=== PATIENT | female | born 1990 | race African-American/Black ===

== ENCOUNTER 2021-10-03 15:13 | Outpatient (CLI) | payer BC, OTHER, SELFPAY ==
--- NOTE | ~2021-10-03 | US_ITS ---
EXAMINATION: US OB <=14 wk fetus w TV DATE: 10/03/2021 16:13 INDICATION: Vaginal bleeding. . TECHNIQUE: Real-time transabdominal and transvaginal pelvic ultrasound was performed. COMPARISON: None. FINDINGS: TRANSABDOMINAL ULTRASOUND: The uterus measures 8.4 x 4.9 x 5.5 cm. TRANSVAGINAL ULTRASOUND: There is an intrauterine gestational sac. A yolk sac is identified. The fet al crown rump length measures 6 mm, which correlates with an estimated gestational age of 6 weeks and 3 day(s) (+/-) 4 day(s). heart motion is identified measuring 129 beats per minute (bpm) by M- mode Doppler. There is a small subchorionic hematoma. There are 1.9 cm and 2.5 cm uterine fibroids. T he right ovary measures 2.2 x 1.6 x 1.7 cm. The left ovary is not well-visualized. There is no free f luid in the pelvis. IMPRESSION: 1. Single living intrauterine gestation with estimated date of delivery of 05/26/2022. 2. Small subchorionic hematoma. 3. Uterine fibroids. Reviewed, dictated and finalized at location A. UCT TESTER IMPRESSION: 1. Single living intrauterine gestation with estimated date of delivery of . 2. Small subchorionic hematoma. 3. Uterine fibroids.
== END 2021-10-03 15:14 | disposition home or self-care (01) ==
PROVIDERS: PCP Family Medicine; Visit Provider Obstetrics & Gynecology Gynecology
DX: O26.851 Spotting complicating pregnancy, first trimester (principal); Z3A.00 Weeks of gestation of pregnancy not specified; D25.9 Leiomyoma of uterus, unspecified
CPT/HCPCS: 36415; 76801; 76817; 86900; 86901

== ENCOUNTER 2021-10-17 08:42 | Outpatient (CLI) | payer BC, OTHER, SELFPAY ==
--- NOTE | ~2021-10-17 | US_ITS ---
EXAMINATION: US OB <= 14 weeks fetus DATE: 10/17/2021 09:30 INDICATION: Subchorionic hematoma during first trimester . TECHNIQUE: Real-time pelvic ultrasound utilizing a transabdominal probe was performed. The interpret ing radiologist was not present for the study. COMPARISON: 10/03/2021 FINDINGS: The uterus measures 10.1 x 8.3 x 7.2 cm. There is an intrauterine gestational sac. A yolk sac and fe jared pole are identified. The crown rump length measures 1.9 cm, which correlates with an estimated ge stational age of 8 weeks and 3 days which is exactly concordant with estimated gestational age based upon the earlier ultrasound. heart motion is identified measuring 163 beats per minute (bpm) by M-mode Doppler. There is a 1.9 x 1.4 x 0.3 cm anechoic likely subchorionic hematoma along the preflight mechanic ior margin of the gestational sac. 3.4 x 3.1 x 2.6 cm hypoechoic pedunculated fibroid arising from th e uterine fundus. The right ovary measures 3.1 x 1.2 x 1.4 cm. The left ovary measures 3.3 x 2.3 x 1.9 cm. 1.8 x 1.5 x 1.2 cm hypoechoic likely corpus luteum cyst in the right left ovary. There is no free fluid in the pe lvis. IMPRESSION: 1. Single living fetus with heart rate of 163 bpm. 2. [place]-rump length of 1.9 cm which is exactly concordant with previously estimated gestational age by ultrasound of 8 weeks 3 day(s) with ultrasound estimated date of delivery (PRADIP) of 05/26/2022. 3. 1.9 x 1.4 x 0.3 cm subchorionic hematoma. 4. 3.4 cm pedunculated fibroid arising from the uterine fundus. Reviewed, dictated and finalized at location A. IMPRESSION: 1. Single living fetus with heart rate of 163 bpm. 2. [place]-rump length of 1.9 cm which is exactly concordant with previously justo mated gestational age by ultrasound of 8 weeks 3 day(s) with ultrasound estimat ed date of delivery (PRADIP) of 05/26/2022. 3. 1.9 x 1.4 x 0.3 cm subchorionic hematoma. 4. 3.4 cm pedunculated fibroid arising from the uterine fundus.
== END 2021-10-17 08:43 | disposition home or self-care (01) ==
PROVIDERS: PCP Family Medicine; Visit Provider Obstetrics & Gynecology Gynecology
DX: O36.8910 Maternal care for other specified fetal problems, first trimester, not applicable or unspecified (principal); Z3A.00 Weeks of gestation of pregnancy not specified
CPT/HCPCS: 76801

== ENCOUNTER 2021-11-07 07:42 | Outpatient (CLI) | payer BC, OTHER, SELFPAY ==
--- NOTE | ~2021-11-07 | US_ITS ---
EXAMINATION: US OB <= 14 weeks fetus DATE: 11/07/2021 08:59 INDICATION: Subchorionic hematoma during first trimester TECHNIQUE: Real-time pelvic ultrasound utilizing transabdominal probe was performed. The yuliana shaw radiologist was not present for the study. COMPARISON: None. FINDINGS: The uterus measures 13.9 x 9.1 x 8.4 cm. There is an intrauterine gestational sac. A yolk sac and fe jared pole are identified. The crown rump length measures 4.7 cm, which is concordant within 1 day of p reviously estimated gestational age of 11 weeks and 3 days. heart motion is identified measurin g 156 beats per minute (bpm) by M-mode Doppler. Persistent 2.1 x 1.4 x 0.4 cm anechoic subchorionic h ematoma. There are a few hypoechoic uterine fibroids, the largest a subserosal fibroid at the right s mary of the fundus measuring up to 3.8 cm in maximal diameter. The right ovary measures 2.7 x 1.5 x 1.3 cm. The left ovary measures 3.7 x 1.8 x 2.2 cm. Vascular britt w identified in both ovaries on color Doppler. There is no free fluid in the pelvis. IMPRESSION: 1. Single living fetus with heart of 156 bpm. 2. [place]-rump length of 4.7 cm which is concordant within 1 day of previously estimated gestational a ge of 11 weeks 3 day(s) with ultrasound estimated date of delivery (PRADIP) of 05/26/2022. 3. Persistent 2.1 x 1.4 x 0.4 anechoic subchorionic hematoma. 4. Fibroid uterus. Reviewed, dictated and finalized at location B. IMPRESSION: 1. Single living fetus with heart of 156 bpm. 2. [place]-rump length of 4.7 cm which is concordant within 1 day of previously e stimated gestational age of 11 weeks 3 day(s) with ultrasound estimated date of delivery (PRADIP) of 05/26/2022. 3. Persistent 2.1 x 1.4 x 0.4 anechoic subchorionic hematoma. 4. Fibroid uterus.
== END 2021-11-07 07:43 | disposition home or self-care (01) ==
PROVIDERS: PCP Family Medicine; Visit Provider Obstetrics & Gynecology Gynecology
DX: O20.8 Other hemorrhage in early pregnancy (principal); Z3A.11 11 weeks gestation of pregnancy; D25.9 Leiomyoma of uterus, unspecified
CPT/HCPCS: 76801

== ENCOUNTER 2021-11-25 15:14 | Outpatient (CLI) | payer BC, OTHER, SELFPAY ==
--- NOTE | ~2021-11-25 | US_ITS ---
EXAMINATION: US OB <= 14 weeks fetus DATE: 11/25/2021 16:27 INDICATION: Subchorionic hematoma follow-up. Second trimester. TECHNIQUE: Real-time transabdominal pelvic ultrasound was performed. COMPARISON: Ultrasound 11/07/2021, 10/03/2021 FINDINGS: The uterus measures 14.9 cm. There is an intrauterine gestational sac. There is a single fetus in br eech presentation. The crown rump length measures 8.9 cm, which correlates with an estimated g estational age of 14 weeks and 5 day(s). heart motion is identified measuring 142 beats per min grind[place] (bpm) by M-mode Doppler. There is a 1.0 cm intramural fibroid. There is a 2.5 cm intramural fibro id. There is a 3.2 cm subserosal fibroid. The ovaries are not visualized. There is no free fluid in t he pelvis. IMPRESSION: 1. Single living intrauterine gestation with estimated date of delivery of 05/26/2022 based on the u ltrasound from 10/03/2021. 2. No subchorionic hematoma. 3. Uterine fibroids. Reviewed, dictated and finalized at location A. IMPRESSION: 1. Single living intrauterine gestation with estimated date of delivery of based on the ultrasound from 10/03/2021. 2. No subchorionic hematoma. 3. Uterine fibroids.
== END 2021-11-25 15:15 | disposition home or self-care (01) ==
PROVIDERS: PCP Family Medicine; Visit Provider Nurse Practitioner
DX: O46.92 Antepartum hemorrhage, unspecified, second trimester (principal); O34.10 Maternal care for benign tumor of corpus uteri, unspecified trimester; Z3A.00 Weeks of gestation of pregnancy not specified
CPT/HCPCS: 76801

== ENCOUNTER 2021-12-26 13:54 | Outpatient (CLI) | payer BC, OTHER, SELFPAY ==
--- NOTE | ~2021-12-26 | US_ITS ---
US breast RT complete DATE: 12/26/2021 16:25 INDICATION: Palpable left breast mass. According to the technologist the patient's physician requeste d complete right breast ultrasound and targeted left 11:00 breast ultrasound examination. TECHNIQUE: Real-time imaging of complete right breast COMPARISON: None FINDINGS: No suspicious mass or shadowing, cyst or other significant abnormality of the right breast is detected. IMPRESSION: BI-RADS Category 1: Negative Reviewed, dictated and finalized at Location A. Reviewed, dictated and finalized at location A.
--- NOTE | ~2021-12-26 | US_ITS ---
US breast LT limited DATE: 12/26/2021 16:24 INDICATION: Palpable area at 11:00 TECHNIQUE: Real-time imaging targeted to 11:00 position of left breast per referring physician instru ctions according to the technologist COMPARISON: None FINDINGS: No suspicious mass, shadowing or other significant abnormality is identified in the left br east at 11:00 7 cm from the nipple. IMPRESSION: BI-RADS Category 1: Negative Reviewed, dictated and finalized at Location A. Reviewed, dictated and finalized at location A.
--- NOTE | ~2021-12-26 | US_ITS ---
EXAMINATION: US OB /maternal detail DATE: 12/26/2021 16:37 INDICATION: survey TECHNIQUE: Multiple obstetric sonographic images performed. FINDINGS: Comparison to multiple prior studies sequentially, with oldest reviewed study dated 2021. There is a single living fetus in variable presentation. The placenta is anterior without placenta p revia. Amniotic fluid volume is normal. There are uterine fibroids measuring up to 4.3 and 1.9 cm gre atest dimension respectively. cardiac activity and movement is noted with a heart rate of 146 beats per minute. The following anatomy was identified as normal: 4 chamber heart 3 vessel cord cord insertion kidneys urinary bladder stomach spine diaphragm ventricles cisterna magna cerebellum The following biometric data were obtained: BPD: 46mm corresponds to gestational age 19 weeks 6 days. Head circumference: 165 mm corresponds to gestational age 19 weeks 1 days. Abdominal circumference: 143 mm corresponds to gestational age 19 weeks 4 days. Femur length: 31 mm corresponds to gestational age 19 weeks 5 days. Head circumference to abdominal circumference ratio: 1.16 (normal range for expected gestational age is 1.08-1.26). Estimated weight: 303 grams +/- 45 grams using Hadlock method, greater than 97%. IMPRESSION: 1: Single living intrauterine with an estimated gestational age of 18weeks 3days by initial ultrasound measurements, with an EDC of 05/26/2022 in variable presentation. 2. Normal survey. 3: Uterine fibroids. Reviewed, dictated and finalized at location A. IMPRESSION: 1: Single living intrauterine with an estimated gestational age of 18 weeks 3days by initial ultrasound measurements, with an EDC of 05/26/2022 in va riable presentation. 2. Normal survey. 3: Uterine fibroids.
== END 2021-12-26 13:55 | disposition home or self-care (01) ==
PROVIDERS: PCP Family Medicine; Visit Provider Obstetrics & Gynecology Gynecology
DX: Z34.92 Encounter for supervision of normal pregnancy, unspecified, second trimester (principal); Z3A.19 19 weeks gestation of pregnancy; D25.9 Leiomyoma of uterus, unspecified; R92.8 Other abnormal and inconclusive findings on diagnostic imaging of breast
CPT/HCPCS: 76641; 76642; 76805

== ENCOUNTER 2022-02-06 07:55 | Outpatient (CLI) | payer BC, OTHER, SELFPAY ==
--- NOTE | ~2022-02-06 | US_ITS ---
EXAMINATION: US OB follow up DATE: 02/06/2022 10:07 INDICATION: viability assessment and fibroid follow-up during second trimester TECHNIQUE: Real-time ultrasound of the pelvis was performed. The interpreting radiologist was not pre sent for the study. COMPARISON: 12/26/2021 FINDINGS: There is a single living fetus in breech presentation. The placenta is anterior. card iac activity and movement are noted. heart rate is 157 beats per minute (bpm). The amniot ic fluid index is 21.6 cm which is normal (normal range: 9.8 cm to 21.9 cm). There is a 4.2 x 4.0 cm intramural fibroid of the uterus, grossly unchanged. The following biometric data were obtained: Biparietal diameter (BPD): 6.5 cm; head circumference (HC): 23.4 cm; abdominal circumference (AC): 21 .6 cm; femur length (FL): 4.5 cm. These measurements are concordant. Estimated weight is 838 g +/- 125 g, which correlates with the 91st percentile when 05/26/2022 is used as estimated date of delivery. As single measurements, these parameters are each equal to the following estimated gestational ages w ith ranges of +/- 2 standard deviations: BPD: 26 weeks 2 days +/- 2 weeks 1 days. HC: 25 weeks 4 days +/- 2 weeks 0 days. AC: 26 weeks 1 days +/- 2 weeks 1 days. FL: 25 weeks 0 days +/- 2 weeks 1 days. estimated gestational age based solely on measurements from this exam is 25 weeks 5 days +/- 1 weeks 6 days. IMPRESSION: 1. Single living fetus in breech presentation. 2. Stable uterine fibroid. 3. Normal amniotic fluid index. 4. Estimated weight is 838 g +/- 125 g, which correlates with the 91st percentile when 05/26/20 is used as estimated date of delivery. Reviewed, dictated and finalized at location B. IMPRESSION: 1. Single living fetus in breech presentation. 2. Stable uterine fibroid. 3. Normal amniotic fluid index. 4. Estimated weight is 838 g +/- 125 g, which correlates with the rcentile when 05/26/2022 is used as estimated date of delivery.
== END 2022-02-06 07:56 | disposition home or self-care (01) ==
PROVIDERS: PCP Family Medicine; Visit Provider Obstetrics & Gynecology Gynecology
DX: O36.62X0 Maternal care for excessive fetal growth, second trimester, not applicable or unspecified (principal); Z3A.25 25 weeks gestation of pregnancy
CPT/HCPCS: 76816

== ENCOUNTER 2022-03-12 16:20 | Outpatient (CLI) | payer BC, OTHER, SELFPAY ==
--- NOTE | ~2022-03-12 | US_ITS ---
EXAMINATION: US OB follow up DATE: 03/12/2022 17:21 INDICATION: Large for gestational dates TECHNIQUE: Real-time transabdominal obstetric ultrasound. FINDINGS: Comparison to multiple prior studies sequentially, with oldest reviewed study dated 2019. There is a single living fetus in vertex presentation. The placenta is anterior without placenta pre via. There is uterine fibroid measuring 5.1 cm. cardiac activity and movement is noted with a heart rate of 150 beats per minute. T he amniotic fluid volume is normal. [place] measures 20.6 cm. The following biometric data were obtained: BPD: 79mm corresponds to gestational age 31 weeks 4 days. Head circumference: 281mm corresponds to gestational age 30 weeks 6 days. Abdominal circumference: 272mm corresponds to gestational age 31 weeks 2 days. Femur length: 61mm corresponds to gestational age 31 weeks 6 days. Estimated weight: 1763grams +/- 264grams, 96.7% by Hadlock method.] IMPRESSION: 1. Single living intrauterine in vertex presentation with an estimated gestational age of 29 weeks 2 days by inititial ultrasound. Accelerated interval growth. Estimated weight is 96.7% by Hadlock method. 2. Normal placenta. Reviewed, dictated and finalized at location A. IMPRESSION: 1. Single living intrauterine in vertex presentation with an estimat ed gestational age of 29 weeks 2 days by inititial ultrasound. Accelerated inte rval growth. Estimated weight is 96.7% by Hadlock method. 2. Normal placenta.
== END 2022-03-12 16:21 | disposition home or self-care (01) ==
PROVIDERS: PCP Family Medicine; Visit Provider Obstetrics & Gynecology Gynecology
DX: O36.63X0 Maternal care for excessive fetal growth, third trimester, not applicable or unspecified (principal); Z3A.29 29 weeks gestation of pregnancy
CPT/HCPCS: 76816

== ENCOUNTER 2022-04-14 20:42 | Observation (INO) | payer BC, OTHER, SELFPAY ==
[2022-04-14] VITALS (25 sets, daily range): BP systolic 99–128; BP diastolic 49–76; PULSE 83–99; O2SAT 98–100; BMI 36.6
--- NOTE | 2022-04-14 21:38 | PC.NURSE ---
2131- Called Dr. Avendaño- informed of pt admission for contractions every 7 minutes apart per pt. pt states that she is having vaginal pressure. cervical exam 160%/-2 posterior. orders received for po hydration, terbutaline and continue to monitor pt. will continue to monitor and call if questions/concerns.
[2022-04-14] MEDS: TERBUTALINE SULFATE 1 MG/ML VIAL 0.25 MG SUB-Q (21:46)
--- NOTE | 2022-04-14 23:11 | PC.NURSE ---
Dr. Avendaño called in for update. update given. order received to have pt take procardia 20mg every 4 instead of 6 hours. may take baby off the monitor and continue to monitor contractions. will give another dose of terbutaline if needed and continue to monitor.
[2022-04-15 00:01] VITALS: BP 105/71; PULSE 89
[2022-04-15 00:16] VITALS: BP 99/50; PULSE 89
--- NOTE | 2022-04-15 00:30 | PC.NURSE ---
called Dr. Avendaño- pt not feeling contractions. no contractions noted on monitor. orders to d/c home with discharge instructions.
[2022-04-15 00:31] VITALS: BP 104/52; PULSE 112
--- NOTE | 2022-04-15 00:34 | OBADM ---
This patient, Buffy Stratton, admitted to the OB room Labor/Delivery/Recovery 106 for observation. Patient/family oriented to hospital policies and general routines including ID bracelet, bed and alarms, visiting hours, pain management, procedures, bathroom and other care routines, personal items, smoking policy, room service/diet, and visiting hours. Patient/Family are encouraged to report perceived risks to care and to ask questions if they do not understand what they are told or what they should do.
--- NOTE | 2022-04-20 09:05 | PM.OBTRLD ---
OB - Triage/Final Diagnosis Visit Information Reason for evaluation: threatened labor Comments/Additional reasons for admission: I have assessed the risk for this patient, Buffy Stratton, and determined that she would benefit from observation care.
== END 2022-04-15 01:03 | disposition home or self-care (01) ==
PROVIDERS: Admitting Provider Obstetrics & Gynecology Gynecology; PCP Family Medicine; Visit Provider Obstetrics & Gynecology Gynecology
DX: O47.03 False labor before 37 completed weeks of gestation, third trimester (principal); Z3A.33 33 weeks gestation of pregnancy
CPT/HCPCS: 96372; G0378; G0379; J3105

== ENCOUNTER 2022-05-21 04:57 | Inpatient (IN) | payer BC, OTHER, SELFPAY ==
[2022-05-21] VITALS (234 sets, daily range): BP systolic 79–164; BP diastolic 39–119; PULSE 71–185; TEMP 36.4–36.9; O2SAT 88–100; BMI 37.8
--- NOTE | 2022-05-21 05:21 | LDADM ---
This patient, Buffy Stratton, was admitted to Labor/Delivery/Recovery 103 on 05/21/22 at 04:57. Plans for labor, pain management and were discussed with patient. Patient/family oriented to hospital policies and general routines including ID bracelet, bed and alarms, visiting hours, pain management, procedures, bathroom and other care routines, personal items, smoking policy, room service/diet and guest tray routines, security routines, and visiting hours. Patient/Family are encouraged to report perceived risks to care and to ask questions if they do not understand what they are told or what they should do. See OBIX for further documentation.
[2022-05-21 05:22] LABS: Basophils Percent Auto 0.2 % (0.2-1.2); Eosinophils Absolute Auto 0.1 K/mm3 (0-0.3); Eosinophils Percent Auto 0.4 % (0-4.4); Hematocrit 35.2 % (37.0-47.0); Immature Granulocyte Absolute 0.08 K/mm3 (0.00-0.031); Immature Granulocyte Percent A 0.7 % (0-0.5); Lymphocytes Absolute Auto 1.82 K/mm3 (0.9-3.2); Lymphocytes Percent Auto 15.8 % (18.3-44.2); Mean Corpuscular HGB Conc 34.1 g/dl (32-36); Mean Corpuscular Hemoglobin 31.6 pg (26-34); Mean Corpuscular Volume 92.6 fl (80-100); Mean Platelet Volume 10.9 fl (7.4-10.4); Monocytes Absolute Auto 1.1 K/mm3 (0.1-0.6); Monocytes Percent Auto 9.7 % (2.6-8.5); Neutrophils Absolute Auto 8.4 K/mm3 (1.3-6.7); Neutrophils Percent Auto 73.2 % (45.5-73.1); Platelet Count Result 280 k/mm3 (150-375); Red Cell Distribution Width 13.4 % (11.5-14.5); White Blood Count 11.5 K/mm3 (4.5-10.0)
[2022-05-21] MEDS: LACTATED RINGERS 1,000 ML 125 ML IV CONT ×4 (05:50→20:51)
[2022-05-21] MEDS: OXYTOCIN 30 UNITS/NS 500 ML 30 UNITS/500 ML BAG 6 UNITS IV CONT (05:50)
[2022-05-21 06:35] LABS: Rapid Plasma Reagin Non-Reactive (NonReactive)
--- NOTE | 2022-05-21 07:18 | WPDOBADMIT ---
Obstetrics - Admit Note Admission Note: record reviewed. No pertinent additions to the history and/or any subsequent changes in the physical findings that are not consistent with the expected course of the were found. Additions to the history and/or subsequent changes in the physical findings follow. Here for MIL at 39 wks. Cervix 5-6/70/-2 anterior. AROM with clear fluid. FHTs cat. I. Continue pitocin.
--- NOTE | 2022-05-21 09:38 | WPDANESEPP ---
Anes - Eval Pre Procedure Procedure: labor epidural Date/Time: 05/21/22 09:38 Preop Diagnosis: labor pain Pre Op Diagnosis: IOL Patient Data Age: 31 Gender: F Height: 1.65 m Weight: 103 kg Last Vital Signs Temp 36.6 C 05/21/22 07:15 Pulse 88 05/21/22 09:30 BP 120/71 05/21/22 09:30 O2 Del Method Room Air 05/21/22 05:20 Allergies Allergy/AdvReac Type Severity Reaction Status Date / Time No Known Allergies Allergy Verified 04/28/22 12:37 Home Medications Medication Instructions Recorded Confirmed Type albuterol sulfate 90 mcg/actuation 2 puff inhalation PRN 04/15/22 05/21/22 History aerosol inhaler nifedipine 10 mg capsule 20 mg Q4H 04/15/22 05/21/22 History ergocalciferol (vitamin D2) 1,250 1,250 mcg PO WEEKLY 04/28/22 05/21/22 History mcg (50,000 unit) capsule (Vitamin D2) ferrous sulfate 250 mg (50 mg 250 mg PO DAILY 04/28/22 04/28/22 History iron) tablet,extended release prenat.vits,calvin,[id number] 1 tablet PO DAILY 04/28/22 04/28/22 History Laboratory Tests 05/21/22 05/21/22 05/21/22 05:16 05:16 05:16 WBC 11.5 K/mm3 H K/mm3 (4.5-10.0) RBC 3.80 M/mm3 L M/mm3 (4.2-5.4) Hgb 12.0 g/dL g/dL (12.0-15.0) Hct 35.2 % L % (37.0-47.0) MCV 92.6 fl fl (80-100) MCH 31.6 pg pg (26-34) MCHC 34.1 g/dl g/dl (32-36) RDW 13.4 % % (11.5-14.5) Plt Count 280 k/mm3 k/mm3 (150-375) MPV 10.9 fl H fl (7.4-10.4) Immature Gran % (Auto) 0.7 % H % (0-0.5) Neut % (Auto) 73.2 % H % (45.5-73.1) Lymph % (Auto) 15.8 % L % (18.3-44.2) [place] % (Auto) 9.7 % H % (2.6-8.5) Eos % (Auto) 0.4 % % (0-4.4) Baso % (Auto) 0.2 % % (0.2-1.2) Lymph # (Auto) 1.82 K/mm3 K/mm3 (0.9-3.2) [place] # (Auto) 1.1 K/mm3 H K/mm3 (0.1-0.6) Eos # (Auto) 0.1 K/mm3 K/mm3 (0-0.3) Baso # (Auto) 0.0 K/mm3 K/mm3 (0.0-0.1) Abs Immat Gran (auto) 0.08 K/mm3 H K/mm3 (0.00-0.031) Absolute Neuts (auto) 8.4 K/mm3 H K/mm3 (1.3-6.7) Absolute Nucleated RBC 0.0 K/mm3 K/mm3 (0.0-0.012) Nucleated RBC % 0.0 % % (0.0-0.2) RPR Non-reactive (NonReactive) Blood Type O Positive Antibody Screen Negative Patient hx anesthesia problems: none Family hx anesthesia problems: none Results Review: All pre-operative results and documents have been reviewed as part of the pre-operative evaluation. [facility] Family History Family History Mother High cholesterol Arthritis Cataract Glaucoma Hypertension Father Arthritis Grandparent Cerebrovascular accident Heart attack Grandparent Cerebrovascular accident Heart attack Grandparent Breast cancer in female Social History Social History Smoking status: Never smoker Substance use: never Spiritual care concerns: No Exam Day of Procedure 05/21/22 09:38
[2022-05-21] MEDS: diphenhydrAMINE HCl INJ 50 MG/ML VIAL 25 MG IV PUSH (21:41)
[2022-05-22] VITALS (61 sets, daily range): BP systolic 85–133; BP diastolic 35–84; PULSE 70–296; RESP 15–22; TEMP 36.5–37.3; O2SAT 97–100
[2022-05-22] MEDS: ceFAZolin 2 GM/D5W 50 ML 2 GM/50 ML BAG IVPB (02:33)
--- NOTE | 2022-05-22 02:34 | PM.IMHP ---
H&P: HPI History of Present Illness Date/Time: 05/22/22 02:34 Chief Complaint: failure to progress Narrative: the patient is a 31-year-old 2 para 0 aborta 1 admitted at 39 weeks for medical induction of labor. ultrasounds have been greater than the 90th percentile for weight. Labor has progressed slowly since induction. Patient has remained 9 to 9 and half for the past 6 to 7 hours. heart tones remained category 1. Labor has been adequate throughout the day. Discussed with the patient the option of versus continuing and due to the estimated large size I recommended proceeding with and the patient agrees. labs O positive, rubella immune, RPR negative, HIV negative, hepatitis-B surface antigen negative, group B strep. Due to the large estimated size patient did Accu-Cheks for a short time that were normal. Her initial hemoglobin A1c and 28 week 1hour glucose challenge test were both no. Patient did have an episode of labor at 31 weeks she did receive steroids at that time. She was on Procardia until 36 weeks. Review of Systems Review of Systems: Comfortable with epidural PMFSH Past Medical History Medical History (Updated 05/22/22 @ 02:40 by Celina Avendaño MD) Asthma Breast lump patient has seen a surgeon during the and the plan is to repeat the exam Fibroids Spontaneous January of 2021 Family History Family History Mother High cholesterol Arthritis Cataract Glaucoma Hypertension Father Arthritis Grandparent Cerebrovascular accident Heart attack Grandparent Cerebrovascular accident Heart attack Grandparent Breast cancer in female Social History Social History Smoking status: Never smoker Substance use: never Spiritual care concerns: No Meds Home Medications and Allergies Home Medications Medication Instructions Recorded Confirmed Type albuterol sulfate 90 mcg/actuation 2 puff inhalation PRN 04/15/22 05/21/22 History aerosol inhaler nifedipine 10 mg capsule 20 mg Q4H 04/15/22 05/21/22 History ergocalciferol (vitamin D2) 1,250 1,250 mcg PO WEEKLY 04/28/22 05/21/22 History mcg (50,000 unit) capsule (Vitamin D2) ferrous sulfate 250 mg (50 mg 250 mg PO DAILY 04/28/22 04/28/22 History iron) tablet,extended release prenat.vits,calvin,[id number] 1 tablet PO DAILY 04/28/22 04/28/22 History Allergies Allergy/AdvReac Type Severity Reaction Status Date / Time No Known Allergies Allergy Verified 04/28/22 12:37 Vital Signs Vital Signs - 24 hr 05/21/22 05:20 05/21/22 06:01 05/21/22 05:30 Temperature 97.5 F L Pulse Rate 93 Blood Pressure 118/76 Pulse Oximetry Oxygen Delivery Room Air 05/21/22 06:15 05/21/22 06:31 05/21/22 06:45 Temperature Pulse Rate 95 82 93 Blood Pressure 116/77 103/59 L 118/82 Pulse Oximetry Oxygen Delivery 05/21/22 07:01 05/21/22 07:15 05/21/22 07:30 Temperature 97.9 F Pulse Rate 93 86 95 Blood Pressure 116/65 119/75 123/77 Pulse Oximetry Oxygen Delivery 05/21/22 07:45 05/21/22 08:00 05/21/22 08:16 Temperature Pulse Rate 92 89 95 Blood Pressure 126/77 122/75 110/72 Pulse Oximetry Oxygen Delivery 05/21/22 08:30 05/21/22 08:45 05/21/22 09:00 Temperature Pulse Rate 96 89 108 H Blood Pressure 115/74 118/68 122/72 Pulse Oximetry Oxygen Delivery 05/21/22 09:16 05/21/22 09:30 05/21/22 09:41 Temperature Pulse Rate 88 88 Blood Pressure 112/61 120/71 Pulse Oximetry 100 Oxygen Delivery 05/21/22 09:43 05/21/22 09:45 05/21/22 09:46 Temperature Pulse Rate 84 89 87 Blood Pressure 126/66 125/72 122/78 Pulse Oximetry 99 Oxygen Delivery 05/21/22 09:48 05/21/22 09:51 05/21/22 09:53 Temperature Pulse Rate 95 89 84 Blo
--- NOTE | 2022-05-22 03:13 | P.OP_ITS ---
Procedure Note - Detailed Date of Procedure 05/22/22 Pre-op Diagnosis Intrauterine at 39 weeks failure to progress Post-op Diagnosis Same ( OP position) Procedure Performed primary low-transverse section Surgeon Celina Avendaño MD Anesthesia Epidural Findings female weighing 8lb 1oz with 9 and 9 Apgars in the OP position; normal- appearing tubes and ovaries; fibroid on the right serosal fundus measuring 5cm Description of Procedure the patient is taken to the operating room and placed under anesthesia in the dorsal supine position with a leftward tilt. The patient was prepped and draped in the usual sterile fashion. Once anesthesia was deemed adequate a Pfannenstiel skin incision was made with a scalpel and carried down to the underlying layer of fascia which was extended laterally using Gautam scissors. Ochsner were used to tent the fascia which was dissected off using sharp dissection. The rectus muscles were in the midline and the peritoneum grasped with a Peon and entered with Metzenbaum. The incision was extended with blunt traction. The bladder blade is placed and the vesicouterine peritoneum tented and entered with Metzenbaum scissors. The incision was extended laterally and the bladder flap created digitally. The bladder blade is replaced. The lower uterine segment was incised in the midline a transverse fashion. The incision was extended with blunt traction. The infant's head is noted to be in the occiput posterior position with the mouth at the incision. The infant's vertex was brought up into the incision and delivered while the physical therapist assistant applied fundal pressure. The was fully delivered. The cord was clamped and cut and the infant handed to the waiting nursery nurse. The cord blood for gases and labs were taken. The placenta is attempted to be removed by manual traction but there was cord avulsion therefore was removed manually. The uterus was cleared of all clots and debris and exteriorized. The uterine incision was closed using 0 Monocryl in a running locked fashion of the same suture used to imbricate. Good hemostasis is noted. The uterus is returned to the abdomen after clearing the gutters of clots and debris. The gutters were cleared of all clots and debris and the fascia closed using 0 Vicryl in a running fashion. Subcutaneous tissues were irrigated made hemostatic using Bovie cautery. Skin incision was closed using 4-0 Vicryl in a subcuticular fashion. Dermaflex was placed over the incision. Sponge, needle, and instrument counts are correct per the OR staff. Patient was taken to recovery in stable condition. Estimated Blood Loss 660 Drains Yes ( Echols catheter) Packing No Pathology None sent Complications No immediate complications Condition Stable Disposition Floor
[2022-05-22] MEDS: KETOROLAC 30 MG/ML VIAL (*BKC) IV PUSH ×3 (03:15→09:34)
--- NOTE | 2022-05-22 03:18 | PM.OBDSVD ---
DS: Admitting Diagnosis Discharge Date 05/24/22 Admitting Diagnosis intrauterine at 39 weeks for medical induction of labor DS: Discharge Diagnosis Discharge Diagnosis (1) Failure to progress in labor: Code(s): O62.2 - Other uterine inertia Status: Acute (2) delivery delivered: Code(s): O82 - Encounter for delivery without indication Status: Acute OB - DS: Summary OB Procedures : Ultrasound OB Procedures Intrapartum: low cervical, transverse OB Procedures: : None Peripartum Data Delivery Method: Section Procedures: Procedures Operation Date: 05/22/22 02:45 <No data on this case meets the specified criteria> complications: none Status at Discharge Functional status at discharge: independent ambulation Overall status at discharge: patient is progressing back to baseline Time Spent with Patient Time attestation: Total time spent providing and/or coordinating discharge services: DS: Data Data Completed and Pending Labs on day of discharge: Labs from last 24 hours 05/21/22 05/21/22 05/21/22 05:16 05:16 05:16 WBC 11.5 H RBC 3.80 L Hgb 12.0 Hct 35.2 L MCV 92.6 MCH 31.6 MCHC 34.1 RDW 13.4 Plt Count 280 MPV 10.9 H Immature Gran % (Auto) 0.7 H Neut % (Auto) 73.2 H Lymph % (Auto) 15.8 L [place] % (Auto) 9.7 H Eos % (Auto) 0.4 Baso % (Auto) 0.2 Lymph # (Auto) 1.82 [place] # (Auto) 1.1 H Eos # (Auto) 0.1 Baso # (Auto) 0.0 Abs Immat Gran (auto) 0.08 H Absolute Neuts (auto) 8.4 H Absolute Nucleated RBC 0.0 Nucleated RBC % 0.0 RPR Non-reactive Blood Type O Positive Antibody Screen Negative Discharge Plan Discharge Attending physician on discharge: Celina Avendaño Discharging Clinician: Ken Watters Anticipated Discharge Date/Time: 05/25/22 03:20 Patient Disposition: Home, Self-Care Activity: may shower, may drive after 2 weeks and pelvic rest Diet: regular Wound Care Instructions: incision open to air Discharge Instructions: Education: Mom and Baby Guide Given to: Mother Follow-Up: Call your delivering provider's office for an appointment to be seen in: 1 Week Mom and baby should come to the [facility] for the follow-up appointment. Appointment Date/Time: May 25, 2022 at 10:00 am What to expect at your follow-up visit: Blood Pressure Check Physical Assessment Call [phone] if you are unable to keep your appointment time. BREAST CARE: * Wear a snug supportive bra. * For engorgement discomfort: Breast Feeding: * Apply warm moist washcloths * Express milk as needed to relieve engorgement * Wear loose clothing Bottle Feeding: * May apply ice packs * For sore nipples: * Identify correct latch-on * Apply warm moist washcloths before and after nursing * Air dry nipples after nursing * May apply Lansinoh cream to nipples ABDOMINAL INCISION: (if applicable) * Allow incision to air dry * Do NOT use lotions for powders on your incision * When showering, allow soap and water to run over the incision, but do not wash incision EPISIOTOMY/PERINEAL CARE: * Until bleeding stops, use your lanie bottle after urinating * Change your pad frequently throughout the day * You may take sitz baths several times a day (fill your bathtub with warm water and soak for 20 minutes.) Do NOT bathe in the water * No tub baths until seen by your physician - You may shower ACTIVITY: * Rest as much as possible. * Do not exercise or lift anything heavier than your baby (such as laundry or other children.) * Avoid stairs or driving as much as possible. * Do not put anything into the vagina. No douching, tampons, or sexual activity until seen by physician. NOTIFY PHYSICIAN IF YOU HAVE ANY QUESTIONS OR IF ANY OF THE
[2022-05-22] MEDS: LACTATED RINGERS 1,000 ML 125 ML IV CONT (04:00)
[2022-05-22] MEDS: OXYTOCIN 30 UNITS/NS 500 ML 30 UNITS/500 ML BAG 125 UNITS IV CONT (04:43)
--- NOTE | 2022-05-22 05:44 | PC.NURSE ---
Patient transferred to post room #280 per stretcher from labor and delivery. Support person present. Oriented to unit, room, information board, rooming in, admission packet and security measures. Patient verbalizes understanding.
[2022-05-22] MEDS: MULTIVIT/MIN/PREN/FOL AC/IRON TABLET 1 TAB PO (09:32)
[2022-05-22] MEDS: DOCUSATE SODIUM 100 MG CAPSULE PO ×2 (09:33→18:59)
[2022-05-22] MEDS: DEXTROSE 5%/0.45% SOD CHL 1,000 ML 125 ML IV CONT (09:35)
--- NOTE | 2022-05-22 09:36 | PM.OBPNVD ---
OB - PN: Subj Subjective Date/time seen: 05/22/22 0735 Patient comments: pain well controlled baby status: doing well [place] feeding status: exclusively breast feeding OB - PN: Obj Data Labs CBC & Chem 7: 05/21/22 05:16 OB - PN A/P Plan day: 0 Plan: routine care Time Spent With Patient Time: Total time spent is greater than 50% in coordination of care (as documented) at patient's floor/unit and/or counseling patient: Review of Systems Review of Systems: All systems reviewed & are unremarkable except as noted in HPI and below Exam Const: Orientation/consciousness: patient oriented x3 Resp: Effort & Inspection: normal respiratory effort and able to speak in complete sentences Auscultation: clear to auscultation bilaterally Cardio: Rate: regular rate Peripheral pulses: Peripheral pulses 2+ throughout GI: Inspection: normal to inspection Auscultation: normal bowel sounds : General: Yes bladder normal to palpation Other: Fundus firm Skin: General skin exam: normal color Other: Incision approximated. Skin glue intact. Neuro: General: patient oriented x3 Cognition (Neuro): normal cognition Speech: normal speech Extrem: General: normal to inspection Psych: Appearance: grossly normal Mental Status: mental status grossly normal Speech and movement: Normal speech and movement present Affect: normal affect Attitude: cooperative Thought process: Normal thought process present
--- NOTE | 2022-05-22 11:30 | PC.NURSE ---
[phone] Introductions were made, then consulted with patient to assess needs related to . Mother led the conversation with she is latching her infant to the breast independently with no pain. She describes hurts at first, then subsides and feels like sucking . Information received well to know what to look for during to confirm effective latching, intake/output using the pie demonstration, swallowing with 's jaw using rocking motion with suck/swallow/pause ratios. Resources provided for inpatient and outpatient services using a resource guide and mom/baby guide. Mother voiced understanding of information and will call for assistance with the next feeding or if her will not wake to breastfeed. Reported to the primary RN.
[2022-05-22] MEDS: IBUPROFEN 600 MG TABLET PO (18:59)
[2022-05-22] MEDS: SIMETHICONE 80 MG TAB.CHEW PO (18:59)
[2022-05-22] MEDS: HYDROcodone/acetaminophen (*CRX) 10-325 MG TABLET 1 TAB PO (21:28)
[2022-05-23] VITALS: BP 124/69; PULSE 88; RESP 18; TEMP 36.9; O2SAT 98
[2022-05-23] MEDS: HYDROcodone/acetaminophen (*CRX) 10-325 MG TABLET 1 TAB PO ×3 (00:30→11:21)
[2022-05-23 04:00] VITALS: BP 113/72; PULSE 87; RESP 18; TEMP 36.7; O2SAT 98
[2022-05-23] MEDS: IBUPROFEN 600 MG TABLET PO ×3 (04:10→19:41)
[2022-05-23] MEDS: SIMETHICONE 80 MG TAB.CHEW PO ×4 (04:10→23:04)
[2022-05-23 04:56] LABS: Basophils Percent Auto 0.2 % (0.2-1.2); Eosinophils Percent Auto 0.2 % (0-4.4); Hematocrit 26.5 % (37.0-47.0); Immature Granulocyte Absolute 0.11 K/mm3 (0.00-0.031); Immature Granulocyte Percent A 0.7 % (0-0.5); Lymphocytes Absolute Auto 2.11 K/mm3 (0.9-3.2); Lymphocytes Percent Auto 12.6 % (18.3-44.2); Mean Corpuscular Volume 91.4 fl (80-100); Mean Platelet Volume 11.1 fl (7.4-10.4); Monocytes Absolute Auto 1.6 K/mm3 (0.1-0.6); Monocytes Percent Auto 9.3 % (2.6-8.5); Neutrophils Absolute Auto 12.9 K/mm3 (1.3-6.7); Platelet Count Result 239 k/mm3 (150-375); Red Cell Distribution Width 13.7 % (11.5-14.5); White Blood Count 16.7 K/mm3 (4.5-10.0)
--- NOTE | 2022-05-23 07:18 | PM.OBPNVD ---
OB - PN: Subj Subjective Date/time seen: 05/23/22 07:18 Patient comments: no complaints, pain well controlled, tolerating diet and flatus present OB - PN: Obj Data Labs CBC & Chem 7: 05/23/22 04:18 Labs: Laboratory Results - last 24 hr 05/23/22 04:18 WBC 16.7 H RBC 2.90 L Hgb 9.0 L D Hct 26.5 L MCV 91.4 MCH 31.0 MCHC 34.0 RDW 13.7 Plt Count 239 MPV 11.1 H Immature Gran % (Auto) 0.7 H Neut % (Auto) 77.0 H Lymph % (Auto) 12.6 L [place] % (Auto) 9.3 H Eos % (Auto) 0.2 Baso % (Auto) 0.2 Lymph # (Auto) 2.11 [place] # (Auto) 1.6 H Eos # (Auto) 0.0 Baso # (Auto) 0.0 Abs Immat Gran (auto) 0.11 H Absolute Neuts (auto) 12.9 H Absolute Nucleated RBC 0.0 Nucleated RBC % 0.0 OB - PN A/P Plan day: 1 Plan: routine care Comments: patient doing well H/H 9.0 afebrile, VSS incision C/D/I kelley removed, voiding spontaneously continue routine post op care Time Spent With Patient Time: Total time spent is greater than 50% in coordination of care (as documented) at patient's floor/unit and/or counseling patient: Time with patient: less than 15 minutes Review of Systems Constitutional: Constitutional: Reports no additional constitutional complaints Cardiovascular: Cardiovascular: Reports no additional cardiovascular complaints Respiratory: Respiratory: Reports no additional respiratory complaints Gastrointestinal: Gastrointestinal: Reports no additional gastrointestinal complaints Genitourinary: Genitourinary: Reports no additional female genitourinary complaints Exam Const: General: comfortable and no acute distress Resp: Effort & Inspection: normal respiratory effort Auscultation: clear to auscultation bilaterally Cardio: Rate: regular rate GI: GI Palp: Yes Soft to palpation, Yes Tenderness to palpation present (GI) (around incision ) and No Guarding due to palpation present (GI) Auscultation: normal bowel sounds Other: incision C/D/I, covered with Dermabond Psych: Appearance: grossly normal Mental Status: mental status grossly normal Affect: normal affect
[2022-05-23 07:50] VITALS: BP 131/80; PULSE 81; RESP 18; TEMP 36.4; O2SAT 97
[2022-05-23] MEDS: MULTIVIT/MIN/PREN/FOL AC/IRON TABLET 1 TAB PO (07:53)
[2022-05-23] MEDS: DOCUSATE SODIUM 100 MG CAPSULE PO ×2 (07:53→16:31)
[2022-05-23] MEDS: POLYSACCHARIDE IRON COMPLEX 150 MG CAPSULE PO ×2 (07:53→16:31)
[2022-05-23] MEDS: HYDROcodone/acetaminophen (*CRX) 5-325 MG TABLET 1 TAB PO ×4 (08:00→23:04)
--- NOTE | 2022-05-23 10:21 | WPDANLDPN2 ---
Anes-Prog Note L&D Date/Time: 05/23/22 10:21 Neuro status: Neuro function grossly intact. Cardiovascular status: normal Respiratory status: normal Airway patency: baseline Mental status: baseline Post-Op hydration status: normal Vital Signs: Last Vital Signs Temp 36.4 C 05/23/22 07:50 Pulse 81 05/23/22 07:50 Resp 18 05/23/22 07:50 BP 131/80 05/23/22 07:50 Pulse Ox 97 05/23/22 07:50 O2 Del Method Room Air 05/23/22 07:50 Pain score (VAS): 2 I/O: Intake & Output 05/22/22 05/23/22 05/23/22 23:59 07:59 15:59 Output Total 1999 -1999 Post-procedural complaints: none Patient feedback: Patient satisfied with anesthetic care.
[2022-05-23 11:43] VITALS: BP 146/80; PULSE 91; RESP 18; TEMP 36.9; O2SAT 99
[2022-05-23 16:50] VITALS: BP 141/77; PULSE 77; RESP 16; TEMP 36.5; O2SAT 98
[2022-05-23 19:41] VITALS: BP 125/73; PULSE 80; RESP 18; TEMP 36.6; O2SAT 100
[2022-05-24] MEDS: SIMETHICONE 80 MG TAB.CHEW PO ×2 (03:57→08:35)
[2022-05-24] MEDS: IBUPROFEN 600 MG TABLET PO (03:57)
--- NOTE | 2022-05-24 07:25 | PM.OBDSVD ---
DS: Admitting Diagnosis Discharge Date 05/24/22 Admitting Diagnosis intrauterine at term OB - DS: Summary OB Procedures : None OB Procedures Intrapartum: OB Procedures: : None Peripartum Data Infant Delivery Method: Section Procedures: Procedures Operation Date: 05/22/22 02:45 Actual Procedure Side Surgeon p Section Not Applicable Celina Avendaño MD complications: none Status at Discharge Functional status at discharge: independent ambulation Overall status at discharge: patient is progressing back to baseline Time Spent with Patient Time attestation: Total time spent providing and/or coordinating discharge services: Time spent: Less than 30 minutes Exam Const: General: comfortable and no acute distress Resp: Effort & Inspection: normal respiratory effort Auscultation: clear to auscultation bilaterally Cardio: Rate: regular rate GI: Inspection: non-distended GI Palp: Yes Soft to palpation, No Firmness to palpation present (GI), Yes Tenderness to palpation present (GI) (mild tenderness over incision ) and No Guarding due to palpation present (GI) Auscultation: normal bowel sounds Psych: Appearance: grossly normal Mental Status: mental status grossly normal Discharge Plan Discharge Attending physician on discharge: Celina Avendaño Discharging Clinician: Ken Watters Anticipated Discharge Date/Time: 05/25/22 03:20 Patient Disposition: Home, Self-Care Activity: may shower, may drive after 2 weeks and pelvic rest Diet: regular Wound Care Instructions: incision open to air Patient Instructions: Antibiotic Form Stand Alone Forms: General Discharge Information Follow-up/Referrals: Celina Avendaño MD [Physician] - 1 Week ( and 6 weeks) Discharge Medications: New hydrocodone-acetaminophen 5-325 mg tablet 1 tablet PO Q6H PRN (Reason: pain) Qty: 30 0RF acetaminophen [Mapap (acetaminophen)] 325 mg Tablet 650 mg PO Q6H PRN (Reason: Mild Pain (1-3)) Qty: 30 0RF ibuprofen 600 mg Tablet 600 mg PO Q6H PRN (Reason: Cramping) Qty: 30 0RF Continued nifedipine 10 mg capsule 20 mg Q4H albuterol sulfate 90 mcg/actuation HFA aerosol inhaler 2 puff INHALATION PRN ergocalciferol (vitamin D2) [Vitamin D2] 1,250 mcg (50,000 unit) Capsule 1,250 mcg PO WEEKLY #2 Tablet 1 tablet PO DAILY ferrous sulfate 250 mg (50 mg iron) Tablet Extended Release 250 mg PO DAILY Date of admission: 05/21/22 04:57 Primary Care Provider: Honey,Tien Wick Admitting Provider: Celina Avendaño Attending physician on admission: Celina Avendaño Condition: Stable
[2022-05-24 08:30] VITALS: BP 147/92; PULSE 78; RESP 18; TEMP 36.7; O2SAT 99
[2022-05-24] MEDS: HYDROcodone/acetaminophen (*CRX) 5-325 MG TABLET 1 TAB PO (08:35)
[2022-05-24] MEDS: MULTIVIT/MIN/PREN/FOL AC/IRON TABLET 1 TAB PO (08:35)
[2022-05-24] MEDS: DOCUSATE SODIUM 100 MG CAPSULE PO (08:35)
[2022-05-24] MEDS: POLYSACCHARIDE IRON COMPLEX 150 MG CAPSULE PO (08:35)
[2022-05-24] MEDS: LANOLIN (LANSINOH) 7.5 GM CREAM 1 APPLIC TOPICAL (08:37)
--- NOTE | 2022-05-24 10:45 | PC.NURSE ---
Patient viewed the discharge video Mother & Baby Care, The First Two Weeks . Patient was given the opportunity and encouraged to ask questions. Patient verbalized understanding of information shared and has been given the mother/baby guide for home reference.
[2022-05-25 09:56] VITALS: BP 127/81; PULSE 80; RESP 20; TEMP 37.1; O2SAT 100
== END 2022-05-24 12:00 | disposition home or self-care (01) | DRG 788 ==
LOC: ANHLDR 05-22 03:38 → ANHOB2 05-22 10:59 → ANHLDR 05-26 10:50 → ANHOB2 05-26 10:50
PROVIDERS: Admitting Provider Obstetrics & Gynecology Gynecology; PCP Family Medicine; Visit Provider Student in an Organized Health Care Education/Training Program
PROC: 10D00Z1 Extraction of Products of Conception, Low, Open Approach (ICD-10-PCS; CPT 59514; principal; 2022-05-22 02:45)
DX: O36.63X0 Maternal care for excessive fetal growth, third trimester, not applicable or unspecified (principal); Z37.0 Single live birth; Z3A.39 39 weeks gestation of pregnancy; O36.8330 Maternal care for abnormalities of the fetal heart rate or rhythm, third trimester, not applicable or unspecified; O62.2 Other uterine inertia
CPT/HCPCS: 36415; 85025; 86592; 86850; 86900; 86901; A9270; J0456; J0690; J1200; J1885; J2274; J2590; J2795; J7120

== ENCOUNTER 2024-08-18 11:39 | Inpatient (IN) | payer OTHER, SELFPAY ==
[2024-08-18] VITALS (54 sets, daily range): BP systolic 108–157; BP diastolic 39–123; PULSE 41–127; RESP 18; TEMP 36.3–37.2; O2SAT 79–100; BMI 38.3
--- NOTE | 2024-08-18 13:10 | WPDOBADMIT ---
Obstetrics - Admit Note Admission Note: record reviewed. No pertinent additions to the history and/or any subsequent changes in the physical findings that are not consistent with the expected course of the were found. Additions to the history and/or subsequent changes in the physical findings follow. Patient is here in active labor. Cervix 3 cm on arrival and now 5/80/-3 AROM with clear fluid. Patient with a prior LTCS for FTP. Patient has planned TOLAC if went into labor on her own. Will proceed with TOLAC. Plans epidural. FHTs cat. I.
[2024-08-18] MEDS: LACTATED RINGERS 1,000 ML 125 ML IV CONT (13:20)
[2024-08-18] MEDS: fentaNYL CITRATE INJ (*CRX) 100 MCG/2 ML VIAL IV PUSH (13:20)
--- NOTE | 2024-08-18 13:32 | LDADM ---
This patient, Buffy Stratton, was admitted to Labor/Delivery/Recovery 102 on 08/18/24 at 11:39. Plans for labor, pain management and were discussed with patient. Patient/family oriented to hospital policies and general routines including ID bracelet, bed and alarms, visiting hours, pain management, procedures, bathroom and other care routines, personal items, smoking policy, room service/diet and guest tray routines, security routines, and visiting hours. Patient/Family are encouraged to report perceived risks to care and to ask questions if they do not understand what they are told or what they should do. See OBIX for further documentation.
[2024-08-18 13:33] LABS: Basophils Percent Auto 0.3 % (0.2-1.2); Eosinophils Percent Auto 0.2 % (0-4.4); Hemoglobin 12.2 g/dL (12.0-15.0); Immature Granulocyte Absolute 0.06 K/mm3 (0.00-0.031); Immature Granulocyte Percent A 0.5 % (0-0.5); Lymphocytes Absolute Auto 1.62 K/mm3 (0.9-3.2); Mean Corpuscular HGB Conc 33.9 g/dl (32-36); Mean Corpuscular Hemoglobin 29.8 pg (26-34); Mean Platelet Volume 10.8 fl (7.4-10.4); Monocytes Percent Auto 8.2 % (2.6-8.5); Neutrophils Absolute Auto 8.9 K/mm3 (1.3-6.7); Neutrophils Percent Auto 76.8 % (45.5-73.1); Platelet Count Result 303 k/mm3 (150-375); Red Blood Count 4.09 M/mm3 (4.2-5.4); Red Cell Distribution Width 14.4 % (11.5-14.5); White Blood Count 11.6 K/mm3 (4.5-10.0)
--- NOTE | 2024-08-18 14:15 | WPDANESEPP ---
Anes - Eval Pre Procedure Procedure: Labor epidural Date/Time: 08/18/24 14:15 Surgeon: Jarocho Preop Diagnosis: Abdominal pain with contractions Pre Op Diagnosis: Labor Patient Data Age: 33 Gender: F Height: 1.65 m Weight: 104.5 kg Last Vital Signs Pulse 88 08/18/24 14:14 BP 152/90 H 08/18/24 14:14 Pulse Ox 100 08/18/24 14:12 O2 Del Method Room Air 08/18/24 13:31 Allergies Allergy/AdvReac Type Severity Reaction Status Date / Time No Known Allergies Allergy Verified 04/28/22 12:37 Home Medications ?Medication ?Instructions ?Recorded ?Confirmed ?Type albuterol sulfate 90 mcg/actuation 2 puff inhalation PRN 04/15/22 05/21/22 History aerosol inhaler nifedipine 10 mg capsule 20 mg Q4H 04/15/22 05/21/22 History ergocalciferol (vitamin D2) 1,250 1,250 mcg PO WEEKLY 04/28/22 05/21/22 History mcg (50,000 unit) capsule (Vitamin D2) ferrous sulfate 250 mg (50 mg 250 mg PO DAILY 04/28/22 04/28/22 History iron) tablet,extended release prenat.vits,calvin,xwc-vyho-vgfis 1 tablet PO DAILY 04/28/22 04/28/22 History acetaminophen 325 mg tablet (Mapap 650 mg (2 x 325 mg) PO Q6H PRN 05/24/22 Rx (acetaminophen)) Mild Pain (1-3) #30 tabs hydrocodone 5 mg-acetaminophen 325 1 tablet PO Q6H PRN pain #30 tabs 05/24/22 Rx mg tablet ibuprofen 600 mg tablet 600 mg PO Q6H PRN Cramping #30 tabs 05/24/22 Rx Laboratory Tests 08/18/24 08/18/24 13:27 13:28 WBC 11.6 H K/mm3 (4.5-10.0) RBC 4.09 L M/mm3 (4.2-5.4) Hgb 12.2 D g/dL (12.0-15.0) Hct 36.0 L % (37.0-47.0) MCV 88.0 fl (80-100) MCH 29.8 pg (26-34) MCHC 33.9 g/dl (32-36) RDW 14.4 % (11.5-14.5) Plt Count 303 k/mm3 (150-375) MPV 10.8 H fl (7.4-10.4) Immature Gran % (Auto) 0.5 % (0-0.5) Neut % (Auto) 76.8 H % (45.5-73.1) Lymph % (Auto) 14.0 L % (18.3-44.2) Stark % (Auto) 8.2 % (2.6-8.5) Eos % (Auto) 0.2 % (0-4.4) Baso % (Auto) 0.3 % (0.2-1.2) Lymph # (Auto) 1.62 K/mm3 (0.9-3.2) Stark # (Auto) 1.0 H K/mm3 (0.1-0.6) Eos # (Auto) 0.0 K/mm3 (0-0.3) Baso # (Auto) 0.0 K/mm3 (0.0-0.1) Abs Immat Gran (auto) 0.06 H K/mm3 (0.00-0.031) Absolute Neuts (auto) 8.9 H K/mm3 (1.3-6.7) Absolute Nucleated RBC 0.000 K/mm3 (0.0-0.012) Nucleated RBC % 0.0 % (0.0-0.2) RPR Pending HIV 1&2 Ab/P24 Ag 4thGn Pending Blood Type Pending Antibody Screen Pending : gestational age HCG: positive Patient hx anesthesia problems: none Family hx anesthesia problems: none Results Review: All pre-operative results and documents have been reviewed as part of the pre-operative evaluation. [facility] Past Medical History Medical History (Updated 08/18/24 @ 14:18 by Bucky Lopez Jr., CRNA) Obesity and not yet delivered delivery delivered Spontaneous January of 2021 Fibroids Breast lump patient has seen a surgeon during the and the plan is to repeat the exam Asthma Family History Family History Mother High cholesterol Arthritis Cataract Glaucoma Hypertension Father Arthritis Grandparent Cerebrovascular accident Heart attack Grandparent Cerebrovascular accident Heart attack Grandparent Breast cancer in female Social History Social History Smoking status: Never smoker Substance use: never Do You Feel Safe in your Home?: Yes Lack of Transportation: No Lack of Food: Never True Current Housing: I Have Housing Concerned About Future Housing: No Difficulty Paying Gas/Electric Bills: No Difficulty Paying for Meds: No Currently Unemployed: No Education: Bachelor's Degree Difficulty w/ Childcare or Family Care: No Spiritual care concerns: No Exam Day of Procedure 08/18/24 14:15 Patient weight: obese
[2024-08-18 14:24] LABS: HIV 1/2 Ab P24 Ag Result Negative (Negative)
[2024-08-18] MEDS: OXYTOCIN 30 UNITS/NS 500 ML 30 UNITS/500 ML BAG 999 UNITS IV CONT (14:42)
--- NOTE | 2024-08-18 14:58 | PM.OBPRVD ---
OB - Vaginal Delivery Note Procedure Delivery date: 08/18/24 Events: Previous Delivery Induction method: None Delivery augmentation: Rupture of Membranes Delivery monitor: External FHT and External Uterine Route of delivery: Episiotomy description: None Laceration Description: Perineal - 2nd Degree Delivery repair: vicryl (3-0) Specimen: Yes (placenta) Quantitative Blood Loss (ml): 400 Anesthesia type: Epidural Disposition: Floor Complications: No immediate complications [place] Baby Date of : 08/18/24 Gestational Age by Date: 39 (39 5/7) Infant gender: Male Weight (pounds): 7 Weight (ounces): 11 presentation: vertex position: Right Occiput Anterior Placenta delivery description: Spontaneous Cord Vessel Description: 3 Vessels and Delayed Cord Clamping score one minute: 8 score five minutes: 9
[2024-08-18 15:00] LABS: Rapid Plasma Reagin Non-Reactive (NonReactive)
--- NOTE | 2024-08-18 15:00 | P.DS_ITS ---
DS: Admitting Diagnosis Discharge Date 08/19/24 Admitting Diagnosis IUP 39 5/7 wks Prior LTCS DS: Discharge Diagnosis Discharge Diagnosis (1) , delivered: Code(s): O34.219 - Maternal care for unspecified type scar from previous delivery Status: Acute OB - DS: Summary OB Procedures : Ultrasound OB Procedures Intrapartum: OB Procedures: : None Peripartum Data Delivery Method: Natural Vaginal Laceration Description: Perineal - 2nd Degree Episiotomy description: None complications: none Status at Discharge Functional status at discharge: independent ambulation Overall status at discharge: patient is progressing back to baseline Time Spent with Patient Time attestation: Total time spent providing and/or coordinating discharge services: DS: Data Data Completed and Pending Labs on day of discharge: Labs from last 24 hours 08/18/24 08/18/24 13:28 13:27 WBC 11.6 H RBC 4.09 L Hgb 12.2 D Hct 36.0 L MCV 88.0 MCH 29.8 MCHC 33.9 RDW 14.4 Plt Count 303 MPV 10.8 H Immature Gran % (Auto) 0.5 Neut % (Auto) 76.8 H Lymph % (Auto) 14.0 L [place] % (Auto) 8.2 Eos % (Auto) 0.2 Baso % (Auto) 0.3 Lymph # (Auto) 1.62 [place] # (Auto) 1.0 H Eos # (Auto) 0.0 Baso # (Auto) 0.0 Abs Immat Gran (auto) 0.06 H Absolute Neuts (auto) 8.9 H Absolute Nucleated RBC 0.000 Nucleated RBC % 0.0 RPR Non-reactive HIV 1&2 Ab/P24 Ag 4thGn Negative Blood Type O Positive Antibody Screen Negative Discharge Plan Discharge Attending physician on discharge: Celina Avendaño Discharging Clinician: Celina Avendaño Anticipated Discharge Date/Time: 08/20/24 15:04 Patient Disposition: Home, Self-Care Activity: may shower and pelvic rest Diet: regular Patient Instructions: Antibiotic Form Patient Language: Japanese Stand Alone Forms: General Discharge Information Follow-up/Referrals: Celina Avendaño MD [Physician] - 6 Weeks Discharge Medications: Continued ergocalciferol (vitamin D2) [Vitamin D2] 1,250 mcg (50,000 unit) Capsule 1,250 mcg PO WEEKLY ferrous sulfate 250 mg (50 mg iron) Tablet Extended Release 250 mg PO DAILY Discontinued acetaminophen [Mapap (acetaminophen)] 325 mg Tablet 650 mg PO Q6H PRN (Reason: Mild Pain (1-3)) Qty: 30 0RF Date of admission: 08/18/24 11:39 Primary Care Provider: Honey,Tien Wick Admitting Provider: Celina Avendaño Attending physician on admission: Celina Avendaño Condition: Stable
[2024-08-18] MEDS: OXYTOCIN 30 UNITS/NS 500 ML 30 UNITS/500 ML BAG 125 UNITS IV CONT (15:15)
[2024-08-18] MEDS: POLYSACCHARIDE IRON COMPLEX 150 MG CAPSULE PO (18:23)
[2024-08-18] MEDS: IBUPROFEN 600 MG TABLET PO (18:23)
[2024-08-18] MEDS: WITCH HAZEL 40 PADS 1 PAD TOPICAL (18:23)
[2024-08-18] MEDS: BENZOCAINE 20% AER SPR (*SP) 56 GM CAN 1 SPRAY TOPICAL (18:23)
--- NOTE | 2024-08-18 21:00 | OBPPTRN ---
Patient transferred to post room #292 via w/c. Support person present. Oriented to unit, room, information board, rooming in, admission packet and security measures. Patient verbalizes understanding.
--- NOTE | 2024-08-18 21:18 | PC.NURSE ---
1950 pt ambulated to bathroom. clean new Gown on, voided, clean pads, ice, tucks, applied. pt, baby and personal belongings pushed up stairs. pt & baby lv well. report given to PP nurse
[2024-08-19 00:05] VITALS: BP 132/84; PULSE 90; RESP 18; TEMP 37.3
[2024-08-19] MEDS: IBUPROFEN 600 MG TABLET PO ×3 (00:05→14:28)
[2024-08-19 04:53] LABS: Hematocrit 28.8 % (37.0-47.0); Hemoglobin 9.7 g/dL (12.0-15.0)
[2024-08-19 05:00] VITALS: TEMP 37.1
[2024-08-19 07:45] VITALS: BP 133/75; PULSE 92; RESP 18; TEMP 36.8; O2SAT 98
[2024-08-19] MEDS: POLYSACCHARIDE IRON COMPLEX 150 MG CAPSULE PO (07:49)
[2024-08-19] MEDS: MULTIVIT/MIN/PREN/FOL AC/IRON TABLET 1 TAB PO (07:49)
[2024-08-19] MEDS: DOCUSATE SODIUM 100 MG CAPSULE PO (07:49)
--- NOTE | 2024-08-19 09:46 | PC.NURSE ---
Mother verbalizes she is able to independently latch with appropriate positioning and alignment. She denies any nipple discomfort and is responsively . Latch assessed at this time. latched to the right breast in cross cradle position, mother denies pain or discomfort and infant is actively nursing at this time. is currently meeting outcomes for weight, output, jaundice, blood sugar and feeding frequencies of 8-12 times in 24 hours. Mother declines any additional assistance or education at this time. Mother is encouraged to call for assistance if her infant doesn?t latch, pain with latching, questions or concerns. Mother voiced understanding of information shared along with the mom/baby guide for an additional resource. Reported to the Primary RN.
--- NOTE | 2024-08-19 10:17 | P.PNOB_ITS ---
OB - PN: Subj Subjective Date/time seen: 08/19/24 10:17 Patient comments: no complaints baby status: doing well OB - PN: Obj Data Labs 08/19/24 04:44 Labs: Laboratory Results - last 24 hr 08/18/24 08/18/24 08/19/24 13:27 13:28 04:44 WBC 11.6 H RBC 4.09 L Hgb 12.2 D 9.7 L Hct 36.0 L 28.8 L MCV 88.0 MCH 29.8 MCHC 33.9 RDW 14.4 Plt Count 303 MPV 10.8 H Immature Gran % (Auto) 0.5 Neut % (Auto) 76.8 H Lymph % (Auto) 14.0 L Fannin % (Auto) 8.2 Eos % (Auto) 0.2 Baso % (Auto) 0.3 Lymph # (Auto) 1.62 Fannin # (Auto) 1.0 H Eos # (Auto) 0.0 Baso # (Auto) 0.0 Abs Immat Gran (auto) 0.06 H Absolute Neuts (auto) 8.9 H Absolute Nucleated RBC 0.000 Nucleated RBC % 0.0 RPR Non-reactive HIV 1&2 Ab/P24 Ag 4thGn Negative Blood Type O Positive Antibody Screen Negative OB - PN A/P Plan day: 1 Plan: routine care, discharge home and follow up 6 weeks Time Spent With Patient Time: Total time spent is greater than 50% in coordination of care (as documented) at patient's floor/unit and/or counseling patient: Exam 2 : Bimanual exam- vagina & uterus: other (Uterus firm, nt @U)
[2024-08-19 12:00] VITALS: BP 103/62; PULSE 89; RESP 16; TEMP 36.7
--- NOTE | 2024-08-19 14:12 | WPDANESPN ---
Anes - Prog Note Post-Op Date/Time: 08/19/24 14:12 Cardiovascular status: normal Respiratory status: normal Airway patency: baseline Mental status: baseline Post-Op hydration status: normal Vital Signs: Last Vital Signs Temp 98.1 F 08/19/24 12:00 Pulse 89 08/19/24 12:00 Resp 16 08/19/24 12:00 BP 103/62 08/19/24 12:00 Pulse Ox 98 08/19/24 07:45 O2 Del Method Room Air 08/18/24 21:00 Pain Score (VAS): 0 I/O: Intake & Output 08/18/24 08/19/24 08/19/24 23:59 07:59 15:59 Intake Total 250 240 Output Total 25 Balance 225 240 Laboratory Tests 08/19/24 04:44 08/18/24 08/18/24 08/19/24 13:27 13:28 04:44 Hgb 9.7 L Hct 28.8 L RPR Non-reactive HIV 1&2 Ab/P24 Ag 4thGn Negative Blood Type O Positive Antibody Screen Negative Post-procedural complaints: none Patient Feedback: Patient satisfied with anesthetic care.
--- NOTE | 2024-08-19 14:21 | PC.NURSE ---
Patient instructed on viewing the discharge video Mother & Baby Care, The First Two Weeks . Patient was given the opportunity and encouraged to ask questions. Patient verbalized understanding of information shared and has been given the mother/baby guide for home reference.
[2024-08-22 14:06] VITALS: BP 127/77; PULSE 81; RESP 18; TEMP 36.8; O2SAT 100
--- OUTSIDE RECORDS SUMMARY | 2024-08-24 06:54 | XMS_ITS | Clinical Summary ---
Author Organization [facility] Address [facility]. [place] [id number] [place] [address] Care Team Providers Care Construction Specialist Name Role Phone Tien Méndez MD Primary Care Provider [phone] Allergies No known active allergies Medications metFORMIN ER (GLUCOPHAGE-XR) 500 MG 24 hr tabletIndication s:Class 2 obesity due to excess calories without serious comorbidity with body mass index (BMI) of 37.0 to 37.9 in adult Take 1 tablet (500 mg total) by mouth daily with breakfast. 90 tablet 3 09/13/2023 09/12/19 25 Active SUMAtriptan (IMITREX) 50 MG tabletIndication s:Chronic migraine without aura without status migrainosus, not intractable Take 1 tablet (50 mg total) by mouth 2 (two) times daily as needed for Migraine. Max of 4 tablets (200 mg) in 24 hours. 30 tablet 3 09/13/2023 Active Active Problems Problem Noted Date Diagnosed Date Chronic migraine without aur a without status migrainosus, not intractable 09/13/2023 Encounters Date Type Department Care Team Description 08/19/2024 Scan [facility] INFO SRVCS Scanned, [facility] 08/18/2024 Scan [facility] HE[facility] INFO SRVCS Scanned, Doc Med Group from Last 3 Months Immunizations Name Administration Dates Next Due MODERNA COVID-19 (12+) MRNA, LNP-S, PF, 100 MCG/ 0.5 ML DOSE 03/22/2021 PFIZER COVID-19 (ORIGINAL FO RMULATION, PURPLE CAP) mRNA, LNP-S, PF, 30 MCG/0.3 ML DOSE 08/04/2021 Family History Medical History Relation Comments Arthritis Father Cancer Maternal Aunt Diabetes Maternal Grandfather Stroke Maternal Grandfather Diabetes Maternal Grandmother Arthritis Mother Hypertension Mother Miscarriages / Stillbirths Mother Cancer Paternal Aunt 1 Cancer Paternal Aunt 2 Diabetes Paternal Grandfather Stroke Paternal Grandfather Relation Status Comments Father Maternal Aunt Maternal Grandfather Maternal Grandmother Mother Paternal Aunt 1 Paternal Aunt 2 Paternal Grandfather Social History Tobacco Use Types Packs/Day Years Used Date Smoking Tobacco: Never Smokeless Tobacco: Never Tobacco Cessation:Counseling Given: No Alcohol Use Standard Drinks/Week Comments Not Currently 0 (1 standard drink = 0.6 oz pur e alcohol) PHQ-2 Answer Date Recorded Patient Health Questionnaire-2 Score 0 09/13/2023 Comments No Sex and Gender Information Value Date Recorded Sex Assigned at Not on file Legal Sex Female 7:26 PM CDT Gender Identity Not on file Sexual Orientation Not on file Last Filed Vital Signs Vital Sign Reading Time Taken Comments Blood Pressure 118/86 09/13/2023 10:06 AM LEAD GENERATOR Pulse 102 09/13/2023 10:06 AM LEAD GENERATOR Temperature 36.6 ??C (97.9 ??F) 09/13/2023 1 0:06 AM LEAD GENERATOR Respiratory Rate 18 09/13/2023 10:0 6 AM LEAD GENERATOR Oxygen Saturation 97% 09/13/2023 10: 06 AM LEAD GENERATOR Inhaled Oxygen Concentration - - Weight 106.5 kg (234 lb 14.4 oz) 2023 10:06 AM LEAD GENERATOR Height 168.9 cm (5' 6.5 ) 12/19/2020 2:36 PM CDT Body Mass Index 37.35 12/19/2020 2:36 PM CDT Plan of Treatment Health Maintenance Due Date Last Done Comments Cervical Cancer Screening Pa p Smear (Age 30 to 64) Every 3 Years 1988 DTaP, Tdap and Td Vaccines ( 1 - Tdap) 2007 Hepatitis B Vaccines (1 of 3 - 19+ 3-dose series) 2007 Cervical Cancer Screening Pa p with HPV Testing (Age 30 to 64) Every 5 Years 2018 COVID-19 Vaccine (3 - Mixed Product risk series) 09/01/2021 08/04/2021, 03/22/2021 Influenza Adult (#1) 2024 Annual Physical 09/13/2024 09/13/2023, 12/19/2020, 06/13/2019 PHQ-2 (Physician Reading) 09/13/2024 09/13/2023 Cervical Cancer Screening with HPV 07/02/2025 Postponed from 08/21 (Going to Outside Clinic) Hepatitis C Completed 09/14/2023 HPV Vaccines Aged Out No longer eligi ble based on patient's age to complete this topic Meningococcal B Vaccine Aged Out No l onger eligible based on patient's age to complete this topic Meningococcal Vaccine Aged Out No leila leah eligible based on patient's age to complete this topic Pneumococcal Vaccine: Pediatrics (0 to 5 Years) and At-Risk Patients (6 to 64 Years) Aged Out No longer eligible b ased on patient's age to complete this topic RSV Immunizations Under 20 Months Aged Out No longer eligible b ased on patient's age to complete this topic Procedures Procedure Name Priority Date/Time Associated Diagnosis Comments HEPATITIS C ANTIBODY Routine 09/14/2023 8:34 AM LEAD GENERATOR Healthcare maintenance Chronic migraine without aura without status migrainosus, not intractable Screening for diabetes mellitus Need for hepatitis C screening test Screening cholesterol level Class 2 obesity due to excess calories without serious comorbidity in adult from Last 3 Months or Most Recently Relevant to Health Maintenance Results * HEPATITIS C ANTIBODY W/REFLEX (09/14/2023 8:34 AM LEAD GENERATOR) HEPATITIS C AB NON-REACTI VE NON-REACTI VE 09/14/2023 10:45 AM LEAD GENERATOR [facility] 09/14/2023 8:34 AM LEAD GENERATOR us Tien Méndez MD LABORATORY Final Result [facility] [address] [place] [address], [place] [phone] from Last 3 Months or Most Recently Relevant to Health Maintenance Insurance Jin Lucas [address] [facility] Care Teams Construction Specialist Relationship Specialty Start Date End Date Tien Méndez MD [address] [facility] [address] [place] [address] PCP - General FAMILY PRACTICE 06/13/19
--- OUTSIDE RECORDS SUMMARY | 2024-08-24 06:55 | XMS_ITS | Clinical Summary ---
Author Organization [facility] Address [address] [place] [address] Phone Care Team Providers Care Industrial Aerial Installer Name Role Phone Unavailable Primary Care Provider Unavailabl e Encounters Date Type Department Care Team Description 06/26/2024 9:30 AM COMMUNITY HEALTH COORDINATOR - 06/26/2024 11:59 PM COMMUNITY HEALTH COORDINATOR Hospital Encounter [facility] Maternal and Health [facility] [address] [place] [address] Celina Avendaño MD Discharge Disposition: Home or Self Care from Last 3 Months Social History Tobacco Use Types Packs/Day Years Used Date Smoking Tobacco: Never Assessed Comments Unknown Sex and Gender Information Value Date Recorded Sex Assigned at Not on file Legal Sex Female 12:24 PM CDT Gender Identity Not on file Sexual Orientation Not on file Plan of Treatment Health Maintenance Due Date Last Done Comments Pre-Diabetes and Diabetes Screening 1988 DTAP/TDAP/TD VACCINES (1 - Tdap) 2007 HEPATITIS B VACCINES (1 of 3 - 19+ 3-dose series) 2007 CERVICAL CANCER SCREENING 2018 INFLUENZA VACCINE (#1) 2024 COVID-19 Vaccine ( - 2023-2 5 season) 2024 08/04/2021, 03/22/2021 HPV VACCINES Aged Out No longer eligi ble based on patient's age to complete this topic PNEUMOCOCCAL VACCINE 0-64 YEARS Aged Out No longer eligible b ased on patient's age to complete this topic Procedures Procedure Name Priority Date/Time Associated Diagnosis Comments US OB FOLLOW UP PER FETUS Routine 06/26/2024 10:04 AM COMMUNITY HEALTH COORDINATOR Encounter for ultrasound to assess growth from Last 3 Months Results * US OB FOLLOW UP PER FETUS (06/26/2024 10:04 AM COMMUNITY HEALTH COORDINATOR) Anatomical Region Laterality Modality Pelvis Ultrasound 06/26/2024 9:48 AM COMMUNITY HEALTH COORDINATOR Narrative 06/26/2024 10:08 AM COMMUNITY HEALTH COORDINATOR STL FOLLOW UP ----- Pat. Name: BUFFY MACIAS Study Date: 06/26/2024 9:48am Pat. NO: [id number] Referring ??MD: CELINA AVENDAÑO MD Site: [facility]: Madyson Moreno RDMS : 1990 Age: 33 ----- INDICATION ----- Screening Follow-Up Advanced Maternal Age (AMA), Multigravida Maternal Obesity (BMI<40) Complicating Maternal Care for Low Transverse Scar from ? x 1 Previous Delivery (Previous ) CODING ----- Diagnoses ? Z3A.32: Weeks of gestation ?O34.211: Maternal care for low transverse scar from previous delivery ?O99.213: Obesity complicating ?Z36.3: Encounter for screening for malformations ?Z3A.32: Weeks of gestation ?O99.213: Obesity complicating ?O09.523: Supervision of elderly multigravida ?Z36.2: Encounter for other screening follow-up Procedures ?[id number]: Ultrasound, uterus, real time with image documentation, follow up, transabdominal ?approach per fetus HISTORY ----- OB History ? 2. Para 1 ?T1L1 METHOD ----- Transabdominal ultrasound examination ----- Barnett . Number of fetuses: 1 DATING ----- LMP on: 11/15/2023 GA by LMP 32 w + 0 d PRADIP by LMP: 2024 GA by prior assessment 32 w + 0 d PARDIP by prior assessment: 2024 Ultrasound examination on: 06/26/2024 GA by U/S based upon: AC, BPD, EFW, Femur, HC GA by U/S 33 w + 2 d PRADIP by U/S: 08/12/2024 Method of dating: Restore dating from previous exam Assigned: based on the LMP, selected on 01/13/2024 Assigned GA 32 w + 0 d Assigned PRADIP: 2024 BIOMETRY ----- BPD ?83.0 ? mm ?33w 3d ?81% ?Hadlock OFD ?106.1 ?mm ?35w 0d ?95% ?Silas HC ? 302.6 ?mm ?33w 4d ?57% ?Hadlock AC ? 294.1 ?mm ?33w 3d ?85% ?Hadlock Femur ?63.3 ? mm ?32w 5d ?58% ?Hadlock HC / AC ?1.03 ? 31% ?Nicolaides Weight Calculation: EFW ? 2,148 ? g ? 33w 0d ?77% ?Hadlock EFW (lb,oz) ? 4 lb 12 ? oz EFW by ?Hadlock (HAL-AP-RR-FL) Extremities / Bony Struc Biometry: FL / BPD ?0.76 FL / HC ? 0.21 FL / AC ? 0.22 GENERAL EVALUATION ----- Cardiac activity present. FHR 143 bpm. movements: present. Presentation: cephalic Placenta: Placental site: posterior Umbilical cord: Cord vessels: 3 vessel cord. Insertion site: placental insertion: normal Amniotic fluid: Amount of AF: normal amount. MVP 6.6 cm. SULAIMAN 19.5 cm. Q1 6.4 cm, Q2 6.6 cm, Q3 1.4 cm, Q4 5.1 cm ANATOMY ----- The following structures appear normal: Head / Neck ? Cranium. Lateral ventricles. Choroid plexus. Midline falx. Cavum septi pellucidi. Cerebellum. Cisterna ?magna. Face ?Profile. Heart / Thorax ?4-chamber view. RVOT view. LVOT view. 3-vessel view. ?Diaphragm. Abdomen ? Stomach. Kidneys. Bladder. GROWTH OVERVIEW ----- Exam date ? GA ?BPD (mm) ? HC (mm) ?AC (mm) ? FL (mm) ?HL (mm) ?EFW (g) 04/06/2024 ? 20w 3d ?50.5 ?82% ?183.4 ? 55% ?165.3 ?80% ?35.0 ?64% ?34.8 ?93% ?412 ? 86% 06/26/2024 ?32w 0d ?83.0 ?81% ?302.6 ? 57% ?294.1 ?85% ?63.3 ?58% ? 2,148 ? 77% COMMENT ----- Patient's name and date of were verified by the form setter steel forms prior to the exam IMPRESSION ----- Impression: Barnett viable intrauterine at 32w 0d in cephalic presentation. Estimated weight is 2148 g (77%ile) with abdominal circumference at the 85%ile. Amniotic fluid volume is normal amount (Amniotic fluid index = 19.5 cm, maximum vertical pocket = 6.6 cm). Recommendation: Follow up as clinically indicated. Thank you for inviting us to participate in your patient's care. Procedure Note Shelly Dhillon MD - 06/26/2024 STL FOLLOW UP ----- Pat. Name:Lluvia MACIAS Date:06/26/2024 9:48am Pat. NO: [id number] MD:CELINA AVENDAÑO [facility]Madyson Moreno RDMS :1990Age:33 ----- INDICATION ----- Screening Follow-Up Advanced Maternal Age (AMA), Multigravida Maternal Obesity (BMI<40) Complicating Maternal Care for Low Transverse Scar from x 1 Previous Delivery (Previous ) CODING ----- Diagnoses Z3A.32: Weeks of gestation O34.211: Maternal care for low transverse scarfrom previous delivery O99.213: Obesity complicating Z36.3: Encounter for screening formalformations Z3A.32: Weeks of gestation O99.213: Obesity complicating O09.523: Supervision of elderly multigravida Z36.2: Encounter for other screeningfollow-up Procedures [id number]: Ultrasound, uterus, real time withimage documentation, follow up, transabdominal approach per fetus HISTORY ----- OB History 2. Para 1 T1L1 METHOD ----- Transabdominal ultrasound examination ----- Barnett . Number of fetuses: 1 DATING ----- LMP on:11/15/2023 GA by LMP32 w + 0 d PRADIP by LMP:2024 GA by prior [id number] w + 0 d PRADIP by prior assessment:2024 Ultrasound examination on:06/26/2024 GA by U/S based upon:AC, BPD, EFW, Femur, HC GA by U/S33 w + 2 d PRADIP by U/S:08/12/2024 Method of dating:Restore dating from previous exam Assigned:based on the LMP, selected on 01/13/2024 Assigned GA32 w + 0 d Assigned PRADIP:2024 BIOMETRY ----- BPD 83.0 mm 33w 3d 81%Hadlock OFD 106.1 mm 35w 0d 95%Silas HC 302.6 mm 33w 4d 57%Hadlock AC 294.1 mm 33w 3d 85%Hadlock Femur 63.3 mm 32w 5d 58%Hadlock HC / AC 1.03 31%Nicolaides Weight Calculation: EFW 2,148 g 33w 0d77% Hadlock EFW (lb,oz) 4 lb 12 oz EFW by Hadlock (ORY-JS-DW-FL) Extremities / Bony Struc Biometry: FL / BPD 0.76 FL / HC 0.21 FL / AC 0.22 GENERAL EVALUATION ----- Cardiac activity present. FHR 143 bpm. movements: present.Presentation: cephalic Placenta: Placental site: posterior Umbilical cord: Cord vessels: 3 vessel cord. Insertion site: placentalinsertion: normal Amniotic fluid: Amount of AF: normal amount. MVP 6.6 cm. SULAIMAN 19.5 cm. Q16.4 cm, Q2 6.6 cm, Q3 1.4 cm, Q4 5.1 cm ANATOMY ----- The following structures appear normal: Head / Neck Cranium. Lateral ventricles. Choroid plexus.Midline falx. Cavum septi pellucidi. Cerebellum. Cisterna magna. Face Profile. Heart / Thorax 4-chamber view. RVOT view. LVOT view. 3-vesselview. Diaphragm. Abdomen Stomach. Kidneys. Bladder. GROWTH OVERVIEW ----- Exam date GA BPD (mm) HC (mm) AC (mm) FL(mm) HL (mm) EFW (g) 04/06/2024 20w 3d 50.5 82% 183.4 55% 165.3 80%35.0 64% 34.8 93% 412 86% 06/26/2024 32w 0d 83.0 81% 302.6 57% 294.1 85%63.3 58% 2,148 77% COMMENT ----- Patient's name and date of were verified by the form setter steel forms prior tothe exam IMPRESSION ----- Impression: Barnett viable intrauterine at 32w 0d in cephalicpresentation. Estimated weight is 2148 g (77%ile) with abdominal circumference atthe 85%ile. Amniotic fluid volume is normal amount (Amniotic fluid index = 19.5 cm,maximum vertical pocket = 6.6 cm). Recommendation: Follow up as clinically indicated. Thank you for inviting us to participate in your patient's care. us Celina Avendaño MD ORDERABLES Final Res ult from Last 3 Months Insurance [facility] BLUE ACCESS CHOICE [facility]
--- OUTSIDE RECORDS SUMMARY | 2024-08-24 06:55 | XMS_ITS | Encounter Summary ---
Author Organization [facility] Address [facility]. [place], [place] [address] [place] [address] Care Team Providers Care Can Reforming Machine Operator Name Role Phone Tien Méndez MD Primary Care Provider [phone] Encounter Details Date Type Department Care Team (Late st Contact Info) Description 12/31/2020 MyChart Message Enc [facility] Family Medicine - [place] [address] [facility], [address] [place] [address] Tien Méndez MD [address] [facility] [address] [place], [place] [id number] RE: Question Social History Tobacco Use Types Packs/Day Years Used Date Smoking Tobacco: Never Smokeless Tobacco: Never PHQ-2 Answer Date Recorded PHQ-2 Score - If the patient scores above 3, please move on to questions 3-9 0 12/19/2020 Comments No Sex and Gender Information Value Date Recorded Sex Assigned at Not on file Legal Sex Female 7:26 PM CDT Gender Identity Not on file Sexual Orientation Not on file COVID-19 Exposure Response Date Recorded In the last month, have you been in contact with someone who was confirmed or suspected to have Coronavirus / COVID-19? No / Unsure 01/01/2021 11:03 AM CDT documented as of this encounter Plan of Treatment Not on file documented as of this encounter Visit Diagnoses Not on filedocumented in this encounter Additional Health Concerns Infection Onset Date Last Indicated Resolved Time COVID-19 Rule Out 01/01/2021 01/01/2021 01/01/2021 12:20 PM CDT COVID-19 Rule Out 01/01/2021 01/01/2021 01/02/2021 2:36 PM CDT documented as of this encounter Care Teams Can Reforming Machine Operator Relationship Specialty Start Date End Date Tien Méndez MD [address] [address] PCP - General FAMILY PRACTICE 06/13/19 documented as of this encounter
== END 2024-08-19 16:42 | disposition home or self-care (01) | DRG 807 ==
LOC: ANHLDR 19:02 → ANHOB2 21:05
PROVIDERS: Admitting Provider Obstetrics & Gynecology Gynecology; PCP Family Medicine; Visit Provider Obstetrics & Gynecology Gynecology
DX: O34.211 Maternal care for low transverse scar from previous cesarean delivery (principal); Z37.0 Single live birth; Z3A.39 39 weeks gestation of pregnancy; O77.0 Labor and delivery complicated by meconium in amniotic fluid; O70.1 Second degree perineal laceration during delivery
CPT/HCPCS: 36415; 85014; 85018; 85025; 86592; 86703; 86850; 86900; 86901; A9270; G0432; J2590; J2795; J3010; J7120